=== PATIENT | female | born 1990 | race Caucasian/White ===

== ENCOUNTER 2017-09-13 08:38 | Emergency (ER) | payer OTHER, SELFPAY ==
[2017-09-13 08:39] VITALS: BP 131/76; PULSE 87; RESP 16; TEMP 36.4; O2SAT 97; BMI 28.3
--- NOTE | 2017-09-13 08:56 | US_ITS ---
STUDY: ABDOMINAL ULTRASOUND - RIGHT UPPER QUADRANT REASON FOR VISIT: Female, 27 years old. Right upper quadrant abdominal pain. TECHNIQUE: Ultrasound evaluation of the right upper quadrant was performed with real-time and static alcaraz-scale imaging. TECHNICAL QUALITY: Adequate. COMPARISON: CT abdomen: 09/15/2016 FINDINGS: Liver: The liver measures 14.8 cm in sagittal length. There is normal echogenicity of the liver. The bile ducts are within normal limits. There is hepatic color flow. The direction of portal flow is hepatopetal. There is no demonstrated mass lesion. Gallbladder: Normal distended gallbladder. The gallbladder wall measures 2.3 mm. There is a positive sonographic Dobbs's sign. There is no pericholecystic fluid. There are multiple echogenic structures within the gallbladder, consistent with multiple gallstones. Common Bile Duct (C.B.D.): The common bile duct measures 3.2 mm. Pancreas: Normal size of the head, body and tail of the pancreas. There is normal echogenicity of the pancreas. There is no demonstrated pancreatic mass or cyst. Right Kidney: Normal size of the right kidney. The right kidney measures 9.0 x 4.3 x 4.9 cm. Normal renal cortex. The right cortex measures 1.1 cm. There is no demonstrated renal mass or cyst. There is no right hydronephrosis. US/Gallbladder IMPRESSION: 1. Cholelithiasis. No demonstrated gallbladder wall thickening or pericholecystic fluid. Reportedly positive sonographic Dobbs's sign. Please correlate clinically. 2. No dilated biliary ductal system. 3. The liver, pancreas and right kidney is unremarkable. Electronically Signed: Chandra Price MD at 9:54 EDT Tel , Service support ,
--- NOTE | 2017-09-13 08:59 | ED.DCSUM_ITS ---
- ER Visit Summary Date of Service: 09/13/17 Chief Complaint: Right upper quadrant pain History of Present Illness: The patient is a 27 F presenting with right upper quadrant abdominal pain. States this began around 1 AM. She states she ate Japanese fries but denies any other fatty or greasy foods. She has nausea with no vomiting. Denies diarrhea or constipation. Denies urinary complaints. Denies fever. Denies possibility of . She has history of previous appendectomy. Denies other complaints. Physical Examination: Vitals are stable. Patient is afebrile. Alert no acute distress. HEENT exam is unremarkable. Neck is supple. Lungs are clear and equal bilaterally. Heart is regular rate and rhythm. Abdomen is soft right upper quadrant tenderness with no rebound or guarding. Extremities are unremarkable. Skin is warm and dry. Remainder of exam is unremarkable. Emergency Department Course and Treatment: Patient is given morphine, Zofran, IV fluids with improvement. CBC, chemistries unremarkable. Liver lipase are normal. HCG negative. Ultrasound gallbladder shows cholelithiasis. No demonstrated gallbladder wall thickening or pericholecystic fluid. No dilated biliary ductal system. The liver, pancreas and right kidney is unremarkable. She is resting comfortably on reevaluation. Advised to follow-up with Dr. Romeo. Advised to return to ED for worsening complaints. Disposition: Discharge home Impression: Abdominal pain, cholelithiasis This note was generated with [employer] dictation software. It may contain incorrect words, spelling, and punctuation that were not noted in review of the chart prior to signing ED Disposition - Plan for ED Patient: Chief Complaint: Abd Pain Referrals: Mac Hallman DO [Primary Care Provider] -
[2017-09-13] MEDS: 0.9% Normal Saline 1,000 ML 1000 ML IV (09:13)
[2017-09-13] MEDS: Ondansetron 4 MG/2 ML Vial IV (09:17)
[2017-09-13] MEDS: Morphine 4 MG/ML Syringe IV ×2 (09:17→10:34)
[2017-09-13 09:21] LABS: Absolute Lymphocyte Count 2.97 X10^3/ul (0.83-4.51); Absolute Neutrophil Count 4.8 X10^3/uL (2.0-7.7); Basophil# 0.03 X10^3/uL; Basophil% 0.4 % (0-1); Eosinophil# 0.21 X10^3/uL; Eosinophils% 2.5 % (0-5); Hematocrit 43.2 % (37-47); Hemoglobin 14.7 g/dl (12.0-15.0); Lymphocyte # 2.97 X10^3/ul (4.0); Lymphocyte % 34.8 % (19-41); Mean Corpuscular Hgb 29.4 pg (27.0-32.0); Mean Corpuscular Volume 86.4 fL (81-99); Mean Platelet Vol. 9.8 fl (6.2-12.0); Monocyte# 0.57 X10^3/uL; Monocyte% 6.7 % (0-10); Neutrophil # 4.75 X10^3/uL (2.7-7.7); Neutrophil % 55.5 % (47-70); Platelet Count 308 K/mm3 (150-450); RBC Distribution Width CV 12.5 % (11.6-14.6); RBC Distribution Width SD 39.9 fl (35.1-43.9); White Blood Count 8.5 K/mm3 (4.4-11.0)
[2017-09-13 09:24] LABS: POSITIVE COUNT NO; POSITIVE DIFFERENTIAL NO; POSITIVE MORPHOLOGY NO
[2017-09-13 09:36] LABS: AST(SGOT) 10 U/L (15-37); Alanine Aminotransfer ALT/SGPT 19 U/L (13-56); Albumin, Serum 3.8 g/dL (3.2-5.0); Alkaline Phosphatase 61 U/L (45-117); Anion Gap 6 (5-15); BUN 8 mg/dL (7-18); BUN/Creat Ratio 9.6 RATIO (10-20); Calcium,Total 8.8 mg/dL (8.5-10.1); Chloride 109 mmol/L (98-107); Creatinine, Serum 0.83 mg/dL (0.55-1.02); EST Glomerular Filtration Rate 88 mL/min (>60); Est Glom Filt Rate - Afr Amer 107 mL/min (>60); Estimated Creatinine Clearance 81.95 ml/min; Glucose 84 mg/dL (74-106); Lipase 173 U/L (73-393); Potassium 3.8 mmol/L (3.5-5.1); Protein, Total 7.8 g/dL (6.4-8.2); Sodium Level 141 mmol/L (136-145)
[2017-09-13 10:10] VITALS: BP 97/63; PULSE 72; RESP 16; O2SAT 100
[2017-09-13 10:11] LABS: Pregnancy, Serum, hCG Quali. NEGATIVE Negative (0-9 Nonpreg)
[2017-09-13 10:13] VITALS: BP 97/63; PULSE 72; RESP 16; O2SAT 100
--- NOTE | 2017-09-13 10:18 | DCINST.ED_ITS ---
ED Disposition - Plan for ED Patient: Chief Complaint: Abd Pain Instructions: Discharge Instructions for Gallstones Prescriptions: Hydrocodone Bitart/Apap 5-325 [[place] 5/325] 1 tablet PO Q6H PRN PRN 2 Days #8 tablet PRN Reason: Pain Ondansetron [Zofran Odt] 4 mg PO Q8H PRN PRN #10 tablet PRN Reason: Nausea Referrals: Mac Hallman DO [Primary Care Provider] - Levy Romeo MD [STAFF PHYSICIAN] -
== END 2017-09-13 11:00 | disposition home or self-care (01) ==
PROVIDERS: Emergency Provider Emergency Medicine; Family Provider Pediatrics; PCP Pediatrics
DX: K80.20 Calculus of gallbladder without cholecystitis without obstruction (principal)
CPT/HCPCS: 76705; 80048; 80076; 83690; 84703; 85025; 96361; 96374; 96375; 96376; 99283; J7030; A4216; J2405

== ENCOUNTER 2019-01-16 02:49 | Emergency (ER) | payer OTHER, SELFPAY ==
[2019-01-16 02:50] VITALS: BP 139/100; PULSE 110; RESP 20; TEMP 36.8; O2SAT 98; BMI 32.2
[2019-01-16] MEDS: DiphenhydrAMINE 50 MG/ML Syringe 25 MG IV (03:00)
[2019-01-16 03:17] VITALS: BP 124/72; PULSE 87; RESP 23; O2SAT 100
--- NOTE | 2019-01-16 03:34 | RAD_ITS ---
STUDY: X-RAY CHEST REASON FOR EXAM: Female, 28 years old. Shortness of breath TECHNIQUE: PA and lateral chest COMPARISON: None. FINDINGS: There are left upper lobe calcified granulomas. The lungs are clear and expanded. There is no demonstrated pleural abnormality. Normal size heart. Normal mediastinum and eusebia. Normal visualized pulmonary arteries. Normal visualized aortic arch and descending thoracic aorta. Normal visualized thoracic spine. Normal visualized ribs, clavicles, and shoulders. There is no demonstrated abnormality of the visualized soft tissue structures of the upper abdomen. RAD/Chest PA and Lateral IMPRESSION: Left upper lobe calcified granulomas Electronically Signed: Juancarlos Raygoza, at 5:17 EDT Tel , Service support ,
--- NOTE | 2019-01-16 03:34 | EKG12_ITS ---
Test Reason : DYSRHYTHMIA Blood Pressure : / mmHG Vent. Rate : 079 BPM Atrial Rate : 079 BPM P-R Int : 106 ms QRS Dur : 082 ms QT Int : 364 ms P-R-T Axes : 032 054 044 degrees QTc Int : 417 ms Sinus rhythm with short [place] Otherwise normal ECG Confirmed by JOSSELIN RUGGIERO, DEBORAH ([id number]), scientific editor TRINO STRANGE ([id number]) on 01/19/2019 11:14:49 AM Referred By: GERMAN Confirmed By:DEBORAH SCHWAB MD
--- NOTE | 2019-01-16 03:38 | ED.VIS.GEN ---
History of Present Illness Chief Complaint: Allergic Reaction Narrative: This patient is a 28-year-old female who presents with shortness of breath. She ate some buffalo chicken about an hour before presentation which she had never had before. While driving home she developed a [id number]-ilewirb sensation in her jaw/mandible. She then developed tightness in her throat and chest. She denies any pain. She has had some nonproductive cough. She otherwise complains of recent rhinorrhea but otherwise no recent illness. She complains of nausea without vomiting. No rash. She was concerned she may be having an anaphylactic reaction versus a panic attack. Although she has had anxiety previously never this severe. She has no known medication or drug allergies although she is allergic to bee stings. No recent travel or surgery, no leg pain or swelling, no history of DVT or pulmonary embolism. Past Medical History - Allergies and Home Meds Allergies/Adverse Reactions: Allergies bee venom protein (honey bee) Allergy (Verified 01/16/19 02:50) Angioedema Primary Care Physician: Mac Hallman DO [Primary Care Provider] - Past Medical History: - - Fibromyalgia Surgical History: appendectomy, cholecystectomy Smoking Status: Never smoker Review of Systems All systems negative except as indicated General: Denies: Fever Cardiovascular: Denies: Chest pain Respiratory: Reports: Dyspnea, Cough Gastrointestinal: Reports: Nausea. Denies: Vomiting, Diarrhea Skin: Denies: Rash Physical Exam Vital Signs/Narrative: Vital Signs Temp Pulse Resp BP Pulse Ox 01/16/19 03:17 87 23 H 124/72 H 100 01/16/19 02:50 98.3 F 110 H 20 H 139/100 H 98 General: Well nourished Head: Normocephalic Eyes: EOMI ENT: Moist mucous membranes, - - Airway patent, no angioedema Neck: Supple Cardiovascular: - - Heart is regular tachycardia without murmur gallop or rub Respiratory: - - Tachypnea but lungs are clear without rales rhonchi wheezing, no stridor Abdomen: Soft, Nontender Extremities: Nontender, No edema Skin: Normal color, No rash Neurological: Alert Psychological: - - Anxious Diagnostic/Tx/Re-eval 01/16/19 03:34 Chest PA and Lateral [RAD] Stat Laboratory Results 01/16/19 01/16/19 01/16/19 02:50 02:50 02:50 WBC 11.3 H RBC 4.96 Hgb 14.5 Hct 43.2 MCV 87.1 MCH 29.2 MCHC 33.6 RDW Std Deviation 37.4 RDW Coeff of Moe 11.9 Plt Count 361 MPV 10.0 Immature Gran % (Auto) 0.300 Neut % (Auto) 54.5 Lymph % (Auto) 36.3 Carlton % (Auto) 7.1 Eos % (Auto) 1.4 Baso % (Auto) 0.4 Absolute Neuts (auto) 6.2 Absolute Lymphs (auto) 4.11 Nucleated RBC % 0 D-Dimer Quant (PE/DVT) 0.36 Sodium 143 Potassium 3.6 Chloride 106 Carbon Dioxide 27.0 Anion Gap 10 BUN 8 Creatinine 0.85 Estim Creat Clear Calc 79.32 Est GFR (MDRD) Af Amer 103 Est GFR (MDRD) Non-Af 86 BUN/Creatinine Ratio 9.4 L Glucose 83 Calcium 9.1 Troponin I < 0.015 - Medical Decision Making Initial differential included allergic reaction or anxiety. She was treated with IV Benadryl which could potentially address both. On reevaluation her heart rate is normal in the 80s and she is maintaining a pulse ox of 100%. However she is complaining of increased shortness of breath. She is tachypneic at about 30 respirations. Her lungs remain clear. No rales no wheezing no stridor. Heart is regular on reevaluation. Her airway is patent. She still has no rash. She is on oral contraceptive and at the time of reevaluation mentioned that there is a family history of factor V Leiden. She has no chest pain but this raise concern for possible pulmonary embolism. At this point EKG chest x-ray laboratory studies including d-dimer have been added on. EKG shows sinus rhythm at a rate of 79 with no acute ischemic changes. Two-view chest x-ray on my review shows no acute process, no pneumothorax or focal infiltrate. Laboratory studies are unremarkable including normal d-dimer negative troponin. Patient was also given IV Ativan. Patient is clinically improved on reevaluation. I do believe there is a component of anxiety. At this point she does not appear to have a serious life-threatening process. She was advised to follow-up as an outpatient but understands return for new or worsening symptoms. ED Disposition - Plan for ED Patient: Disposition: Home or Assisted Living Diagnosis: Dyspnea, Chest pain Instructions: ED Dyspnea Referrals: Mac Hallman DO [Primary Care Provider] -
[2019-01-16 03:48] LABS: Absolute Lymphocyte Count 4.11 X10^3/uL (0.83-4.51); Absolute Neutrophil Count 6.2 X10^3/uL (2.0-7.7); Basophil# 0.05 X10^3/uL; Basophil% 0.4 % (0-1); Eosinophil# 0.16 X10^3/uL; Eosinophils% 1.4 % (0-5); Hematocrit 43.2 % (37-47); Hemoglobin 14.5 g/dL (12.0-15.0); Lymphocyte # 4.11 X10^3/ul (4.0); Lymphocyte % 36.3 % (19-41); Mean Corp Hgb Conc 33.6 g/dL (32-36); Mean Corpuscular Hgb 29.2 pg (27.0-32.0); Mean Corpuscular Volume 87.1 fL (81-99); Monocyte% 7.1 % (0-10); NRBC Flagged by Analyzer 0 % (0-5); Neutrophil # 6.18 X10^3/uL (2.7-7.7); Neutrophil % 54.5 % (47-70); Platelet Count 361 K/mm3 (150-450); RBC Distribution Width CV 11.9 % (11.6-14.6); RBC Distribution Width SD 37.4 fl (35.1-43.9); Red Blood Count 4.96 M/mm3 (4.2-5.4); White Blood Count 11.3 K/mm3 (4.4-11.0)
[2019-01-16 03:55] LABS: D-Dimer Quantitative (DVT/PE) 0.36 FEU/ug/m (0.27-0.49)
[2019-01-16 04:03] LABS: Anion Gap 10 (5-15); BUN 8 mg/dL (7-18); BUN/Creat Ratio 9.4 RATIO (10-20); Calcium,Total 9.1 mg/dL (8.5-10.1); Chloride 106 mmol/L (98-107); Creatinine, Serum 0.85 mg/dL (0.55-1.02); EST Glomerular Filtration Rate 86 mL/min (>60); Est Glom Filt Rate - Afr Amer 103 mL/min (>60); Estimated Creatinine Clearance 79.32 ml/min; Glucose 83 mg/dL (74-106); Potassium 3.6 mmol/L (3.5-5.1); Sodium Level 143 mmol/L (136-145)
[2019-01-16] MEDS: LORazepam 2 MG/ML Syringe 1 MG IV (04:10)
[2019-01-16 04:47] VITALS: PULSE 78; RESP 20; O2SAT 100
== END 2019-01-16 04:52 | disposition home or self-care (01) ==
PROVIDERS: Emergency Provider Emergency Medicine; Family Provider Pediatrics; PCP Pediatrics
DX: R06.00 Dyspnea, unspecified (principal); R05 Cough; R06.02 Shortness of breath; R07.9 Chest pain, unspecified; M79.7 Fibromyalgia; F41.9 Anxiety disorder, unspecified; Z90.49 Acquired absence of other specified parts of digestive tract
CPT/HCPCS: 71046; 80048; 84484; 85025; 85379; 93005; 96374; 96375; 99282; A4216

== ENCOUNTER 2021-09-14 08:20 | Day surgery (SDC) | payer OTHER, SELFPAY ==
[2021-09-14 08:54] LABS: Internal QC Validated? YES +Cl - CLEAR BKGD; Pregnancy, Urine Negative Negative
[2021-09-14 08:58] VITALS: BP 98/65; PULSE 86; RESP 16; TEMP 36.4; O2SAT 100; BMI 31.1
[2021-09-14] MEDS: Lactated Ringers 1,000 ML 15 ML IV (09:02)
--- NOTE | 2021-09-14 09:17 | PCM.HP.BLA ---
History and Physical Date of Admission: 09/14/21 Intake Vital Signs 08/31/21 09:07 Height 5 ft 2 in Weight: 176 lb BMI 32.1 BP 136/88 H Blood Pressure Location Rt brachial Position Sitting Respiration 16 Pulse 91 Pulse Source Monitor Temp 98.1 F Temp Source Temporal Pulse Oximetry (%) 98 Oxygen Delivery Method room air Intake Visit Reasons: RECTAL BLEEDING CSCOPE Chief Complaint: Rectal Bleeding Cscope Product Sales Representative Required: No Is patient in pain?: No Allergies bee venom protein (honey bee) Allergy (Verified 08/31/21 09:08) Angioedema Medications Control 1 tab PO DAILY 09/15/16 [History Confirmed 01/16/19] hydroxyzine HCl 25 mg tablet 25 mg PO BID PRN 08/31/21 [History Confirmed 08/31/21] ondansetron HCl 4 mg tablet 4 mg PO Q6H 08/31/21 [History Confirmed 08/31/21] PFSH Surgical History (Updated 08/31/21 @ 09:03 by Huma Friday) History of appendectomy History of cholecystectomy Hx of LASIK Family History (Updated 08/31/21 @ 09:05 by Huma Friday) Mother Bleeding disorder Factor V Grandmother Breast cancer Hypertension CVA (cerebral vascular accident) Grandfather Colon cancer Both grandfathers, one from Diabetes Heart disease Cancer skin Social History (Updated 08/31/21 @ 09:06 by Huma Friday) Smoking Status: Never smoker alcohol intake: current details: socially substance use type: does not use HPI HPI HPI: EDENILSON AGUILERA, is a 31 F who presents to the office today for GI bleeding. The patient reports with for the past year she has had GI bleeding. She reports that it alternates between bright red and dark red. Patient does note lower abdominal pain and cramping. She says it does not always happen and occasionally happens. She has had some inadvertent weight loss. She does have family history of colon cancer in her grandfather and uncle. ROS General General: Yes weight change and fatigue; No appetite, colon cancer, breast cancer or weakness Additional Details: Lost 25-30 lbs over 1 month HEENT HEENT: Yes eye surgery; No difficulty swallowing, eye injury, swollen glands or hoarseness Endo Endocrine: No thyroid disease, diabetes mellitus, thyroid cancer, Hair loss, heat intolerance or cold intolerance Skin Skin: No rash or changing moles Musc Musculoskeletal: No back problems, arthritis, rheumatoid arthritis, gout or joint pain Cardio Cardiovascular: No murmur, pacemaker, heart disease, atrial fibrillation, high blood pressure, heart attack, heart stent, palpitations, shortness of breat with exertion or chest pain Psych Psychiatric: Yes anxiety; No depression or hearing voices Resp Respiratory: No shortness of breath, No sleep apnea, No cough, No COPD, No asthma, No emphysema and No wheezing Gastro Gastrointestinal: Yes abdominal pain, Yes nausea or vomiting, Yes diarrhea, Yes constipation, Yes blood in stool, No acid reflux, Yes hemorrhoids, No ulcers, No gallbladder problem and Yes black,tarry stools Michael Hematologic: No blood thinners, No blood disorders, No bleeding, No anemia and No blood clots Additional Details: Being tested for Factor V Neuro Neurologic: No system reviewed and no additional complaints, except as documented, No as per HPI, No abnormal gait, No abnormal hearing, No abnormal movements, No abnormal speech, No behavioral changes, No burning sensations, No confusion, No convulsions, No disequilibrium, No dizziness, No localized weakness, No frequent falls, No headache(s), No lack of coordination, No loss of vision, No memory loss, No numbness, No other visual disturbances, No radicular pain, No restless legs, No sensory deficit, No syncope, No tingling, No tremor(s), No weakness and No other Exam Const General: cooperative Orientation: alert and oriented x3 HENMT Head: normal to inspection Neck Neck: normal visual inspection and full ROM Chest Chest palpation & inspection: normal inspection of the chest Resp Effort & Inspection: normal respiratory effort Auscultation: clear to auscultation bilaterally Cardio Rate: regular rate Rhythm: regular rhythm GI Inspection: non-distended Palpation: soft and nontender Skin General: no rashes or lesions noted Neuro General: patient alert and patient oriented x3 Extrem General: full ROM Psych Appearance: grossly normal Mental Status: mental status grossly normal Assessment and Plan Assessment and Plan (1) Blood in stool: Status: Acute Orders: Orders: Colonoscopy Today Plan - Dr. Obdulio Lennon MD: The patient has had GI bleeding which has been bright and dark. I recommend upper and lower scope to elucidate the cause. I explained endoscopy in detail to the patient. I explained the risks including but not limited to stroke or heart attack with anesthesia, perforation of the GI tract, bleeding, infection. I explained that any of these could necessitate further emergency surgery. The patient understands and all questions were answered sufficiently. The patient wishes to proceed with procedure. Obdulio Lennon MD Pager: [facility] [address] [place] [address], [address] [place] [address] Office: I have re-examined the patient. There are no clinical changes since date of exam.
--- NOTE | 2021-09-14 09:30 | COLBX_PTH ---
PATIENT: EDENILSON AGUILERA WATERLOO LOC: EN U#:[id number] AGE/SX: ROOM: RE09/14/[address]: Dr. Obdulio Lennon MD : 1990 BED: DIS: 09/14/2021 SPEC #: [id number] RECD: 09/14/21 10:29 STATUS: GUTIERREZ REGaudencio #: [id number] MIROSLAVA: 09/14/21 09:[address]: Obdulio Lennon DEPT: SURGICAL PATHOLOGY RECD BY: eSema Bustillos ENTERED: 09/14/21 12:00 SP TYPE: COLON BX OTHR DR: DEEPAK Daugherty Tissues: Sigmoid colon biopsy Procedures: Surgery Specimen Level IV HEADER OPERATION: Colonoscopy, EGD ([facility]) PRE-OP DIAGNOSIS: Blood in Stool TISSUE SUBMITTED: Sigmoid polyp at 15 cm MICROSCOPIC DIAGNOSIS Sigmoid colon polyp at 15cm, biopsy: Tubular adenoma. AM/am 09/17/21 MICROSCOPIC DESCRIPTION Slides are reviewed. GROSS DESCRIPTION Received is one container labeled with the patient name and designated sigmoid polyp at 15 cm. The specimen consists of one irregular fragment of kaufman-pink polyp that measures 0.6 x 0.5 x 0.5 cm. Apparent base is inked. The specimen is bisected and totally submitted in one cassette. MCKINLEY 09/16/21. TC:5 CPT: 69971
[2021-09-14 10:10] VITALS: BP 105/69; BP 98/65; PULSE 77; RESP 13; TEMP 36.6; O2SAT 99
[2021-09-14 10:15] VITALS: BP 90/47; BP 98/65; PULSE 79; RESP 16; O2SAT 100
[2021-09-14 10:20] VITALS: BP 95/62; BP 98/65; PULSE 79; RESP 15; O2SAT 99
[2021-09-14 10:25] VITALS: BP 98/65; BP 99/68; PULSE 60; RESP 16; TEMP 36.7; O2SAT 100
[2021-09-14 10:51] VITALS: BP 98/65
--- NOTE | 2021-09-14 14:09 | OP.EGD_ITS ---
Patient Name: Jeannine Elizabeth Procedure Date: 09/14/2021 9:28 AM Date of : 1990 Age: 31 Procedure: Upper GI endoscopy Indications: Hematochezia Providers: Obdulio Lennon MD Medicines: Propofol per Anesthesia Patient Profile: This is a 31 year old female. Refer to note in patient chart for documentation of history and physical. Complications: No immediate complications. Procedure: Pre-Anesthesia Assessment: - Prior to the procedure, a History and Physical was performed, and patient medications and allergies were reviewed. The patient's tolerance of previous anesthesia was also reviewed. The risks and benefits of the procedure and the sedation options and risks were discussed with the patient. All questions were answered, and informed consent was obtained. Prior Anticoagulants: The patient has taken no previous anticoagulant or antiplatelet agents. After reviewing the risks and benefits, the patient was deemed in satisfactory condition to undergo the procedure. After obtaining informed consent, the endoscope was passed under direct vision. Throughout the procedure, the patient's blood pressure, pulse, and oxygen saturations were monitored continuously. The gastroscope was introduced through the mouth, and advanced to the second part of duodenum. The upper GI endoscopy was accomplished without difficulty. The patient tolerated the procedure well. Scope In: 9:42:39 AM Scope Out: 9:45:09 AM Total Procedure Duration Time 0 hours 2 minutes 30 seconds Findings: The esophagus was normal. The stomach was normal. The examined duodenum was normal. Impression: - Normal esophagus. - Normal stomach. - Normal examined duodenum. - No specimens collected. Recommendation: - Discharge patient to home. - Resume previous diet. - Continue present medications. Procedure Code(s): --- Professional --- 28532, Esophagogastroduodenoscopy, flexible, transoral; diagnostic, including collection of specimen(s) by brushing or washing, when performed (separate procedure) Diagnosis Code(s): --- Professional --- K92.1, Melena (includes Hematochezia) CPT copyright 2017 [employer]. All rights reserved. The codes documented in this report are preliminary and upon retail pharmacy manager review may be revised to meet current compliance requirements. Obdulio Lennon MD 09/14/2021 2:09:17 PM This report has been signed electronically. Number of Addenda: 0 Note Initiated On: 09/14/2021 9:28 AM
--- NOTE | 2021-09-14 14:10 | OP.CCLET_ITS ---
09/14/2021 Mac Hallman [address] [facility] [address] [place] [address] Re : Upper GI endoscopy procedure for Jeannine [facility] Dear Dr. Hallman This procedure was performed on Tuesday, September 14, 2021. My impressions and recommendations are as follows: Impressions : - Normal esophagus. - Normal stomach. - Normal examined duodenum. - No specimens collected. Recommendations : - Discharge patient to home. - Resume previous diet. - Continue present medications. My findings are described in the full procedure note, which is enclosed. If I can be of further assistance, please feel free to contact me at Doctor phone number(s): , Work: . Sincerely, Obdulio Lennon MD 09/14/2021 2:09:17 PM This report has been signed electronically.
--- NOTE | 2021-09-14 14:13 | OP.COLON_ITS ---
Patient Name: Jeannine Elizabeth Procedure Date: 09/14/2021 9:47 AM Date of : 1990 Age: 31 Procedure: Colonoscopy Indications: Colon cancer screening in patient at increased risk: Family history of colorectal cancer in multiple 2nd degree relatives Providers: Obdulio Lennon MD Medicines: Monitored Anesthesia Care Patient Profile: This is a 31 year old female. Refer to note in patient chart for documentation of history and physical. Last Colonoscopy: none. The patient's first colonoscopy is today. Complications: No immediate complications. Procedure: Pre-Anesthesia Assessment: - Prior to the procedure, a History and Physical was performed, and patient medications and allergies were reviewed. The patient's tolerance of previous anesthesia was also reviewed. The risks and benefits of the procedure and the sedation options and risks were discussed with the patient. All questions were answered, and informed consent was obtained. Prior Anticoagulants: The patient has taken no previous anticoagulant or antiplatelet agents. After reviewing the risks and benefits, the patient was deemed in satisfactory condition to undergo the procedure. After I obtained informed consent, the scope was passed under direct vision. Throughout the procedure, the patient's blood pressure, pulse, and oxygen saturations were monitored continuously. The pediatric colonoscope was introduced through the anus and advanced to the cecum, identified by appendiceal orifice and ileocecal valve. The colonoscopy was performed without difficulty. The patient tolerated the procedure well. The quality of the bowel preparation was good. Scope In: Scope Withdrawal Time 0 hours 7 minutes 14 seconds Scope Out: 10:02:46 AM Findings: A medium polyp was found in the sigmoid colon. The polyp was pedunculated. The polyp was removed with a hot snare. Resection and retrieval were complete. The entire examined colon appeared normal on direct and retroflexion views. The exam was otherwise without abnormality on direct and retroflexion views. Impression: - One medium polyp in the sigmoid colon, removed with a hot snare. Resected and retrieved. - The entire examined colon is normal on direct and retroflexion views. - The examination was otherwise normal on direct and retroflexion views. Recommendation: - Discharge patient to home. - Resume previous diet. - Continue present medications. - Await pathology results. - Repeat colonoscopy in 5 years for surveillance. Procedure Code(s): --- Professional --- 36926, Colonoscopy, flexible; with removal of tumor(s), polyp(s), or other lesion(s) by snare technique Diagnosis Code(s): --- Professional --- Z80.0, Family history of malignant neoplasm of digestive organs D12.5, Benign neoplasm of sigmoid colon CPT copyright 2017 [employer]. All rights reserved. The codes documented in this report are preliminary and upon capacitor pack press operator review may be revised to meet current compliance requirements. Obdulio Lennon MD 09/14/2021 2:12:58 PM This report has been signed electronically. Number of Addenda: 0 Note Initiated On: 09/14/2021 9:47 AM
--- NOTE | 2021-09-14 14:14 | OP.CCLET_ITS ---
09/14/2021 Mac Hallman [address] [facility] [address] [place] [address] Re : Colonoscopy procedure for Jeannine [facility] Dear Dr. Hallman This procedure was performed on Tuesday, September 14, 2021. My impressions and recommendations are as follows: Impressions : - One medium polyp in the sigmoid colon, removed with a hot snare. Resected and retrieved. - The entire examined colon is normal on direct and retroflexion views. - The examination was otherwise normal on direct and retroflexion views. Recommendations : - Discharge patient to home. - Resume previous diet. - Continue present medications. - Await pathology results. - Repeat colonoscopy in 5 years for surveillance. My findings are described in the full procedure note, which is enclosed. If I can be of further assistance, please feel free to contact me at Doctor phone number(s): , Work: . Sincerely, Obdulio Lennon MD 09/14/2021 2:12:58 PM This report has been signed electronically.
== END 2021-09-14 11:06 | disposition home or self-care (01) ==
LOC: EN 08:24 → AC 08:25
PROVIDERS: Anesthesiology; PCP Nurse Practitioner Family; Referring Provider Nurse Practitioner Family; Visit Provider Surgery
PROC: 0DJD8ZZ Inspection of Lower Intestinal Tract, Via Natural or Artificial Opening Endoscopic (ICD-10-PCS; CPT 45378; principal; 2021-09-14 09:25)
DX: D12.5 Benign neoplasm of sigmoid colon (principal); Z80.0 Family history of malignant neoplasm of digestive organs; K92.1 Melena; Z83.2 Family history of diseases of the blood and blood-forming organs and certain disorders involving the immune mechanism; Z87.19 Personal history of other diseases of the digestive system; M79.7 Fibromyalgia
CPT/HCPCS: 45385; 43235; 81025; 87426; 88305; J7120; J2405

== ENCOUNTER → 2023-05-30 | Outpatient (CLI) | payer OTHER, SELFPAY ==
--- NOTE | 2023-05-30 14:25 | US_ITS ---
STUDY: ULTRASOUND TRANSVAGINAL CLINICAL: Female, 33 years old. Painful bleeding, infertility workup TECHNIQUE: Transvaginal COMPARISON: None. FINDINGS: Normal uterine size measuring 7.7 cm in maximal craniocaudal dimension. There are no myometrial masses. Uterus is septated Normal endometrial thickness measuring 10.2 mm. There are no endometrial masses, and there is no fluid in the endometrial cavity. Normal uterine cervix. Normal right ovary, measuring 3.8 x 3.1 x 2.5 cm. There are multiple follicles without a dominant cyst. Normal left ovary, measuring 2.9 x 2.5 x 2.1 cm. There are multiple follicles without a dominant cyst. Bladder is incompletely distended US/Transvaginal Non- IMPRESSION: Septated uterus No suspicious adnexal mass or free fluid No uterine fibroid Electronically Signed: Heladio Rivas MD at 20:15 EST ,
== END | disposition home or self-care (01) ==
PROVIDERS: PCP Nurse Practitioner Adult Health; Referring Provider Advanced Practice Midwife; Visit Provider Advanced Practice Midwife
DX: Z31.69 Encounter for other general counseling and advice on procreation (principal); N94.6 Dysmenorrhea, unspecified
CPT/HCPCS: 76830

== ENCOUNTER → 2023-06-09 | Outpatient (CLI) | payer OTHER, SELFPAY ==
--- OUTSIDE RECORDS SUMMARY | 2023-06-09 17:23 | XMS RPT_ITS | CCD ---
Author Name Unknown Address [address] [place] [address] Organization [facility] Care Team Providers Care Access Clinician Name Role Phone JESSICA GUNN Unavailable Unavailable JESSICA GUNN Unavailable Unavailable Tiara Ruffin CNP Primary Care Provider Unavail able TIARA STEEN Primary Care Physician ( [phone] Allergies Allergy Classification Reported Allergen(s) Allergy Type Date of Onset Reaction(s) Facility (1 source) [facility]; Translations: [[facility]] Propensity to adverse reactions (disorder) 3 [facility] [place] [facility] Medications Current Medications Medication Drug Class(es) Dates Sig (Normalized) Sig (Original) hydrOXYzine pamoate 25 mg oral capsule (1 source) Antihistamine Start: 08-16-2021 End: 10-15-2021 Vistaril 25 mg oral capsule Dose : 25 mg = 1 cap(s), Oral, QID, PRN as needed for anxiety, X 30 day(s), # 120 cap(s), 1 Refill(s), 10/15/21 15:39:00 EDT, Pharmacy: [address], 156.7, cm, 08/16/21 15:16:00 EDT, Height Start Date: 08/16/21 Stop Date: 10/15/21 Status: Ordered lisdexamfetamine dimesylate 10 mg oral capsule (1 source) Central Nervous System Stimulant Start: 08-16-2021 Vyvanse 10 mg oral capsule Dose : 10 mg = 1 cap(s), Oral, qAM, # 30 cap(s), 0 Refill(s), Pharmacy: [facility], ADD (attention deficit disorder), 156.7, cm, 08/16/21 15:16:00 EDT, Height, 80.3 Start Date: 08/16/21 Status: Ordered LORazepam 0.5 mg oral tablet (1 source) Benzodiazepine Start: 05-10-2020 LORazepam 0.5 mg oral tablet 0 Refill(s), 85.1 Start Date: 05/10/20 Status: Ordered ondansetron 4 mg oral tablet (2 sources) Serotonin-3 Receptor Antagonist Start: 08-16-2021 End: 08-16-2022 Zofran 4 mg oral tablet Dose : 4 mg = 1 tab(s), Oral, q6h, PRN Nausea/Vomiting , # 20 tab(s), 1 Refill(s), 08/16/22 15:40:00 EDT, Pharmacy: [address], 156.7, cm, 08/16/21 15:16:00 EDT, Height Start Date: 08/16/21 Stop Date: 08/16/22 Status: Ordered Completed/Discontinued Medications Medication Drug Class(es) Dates Sig (Normalized) Sig (Original) clonazePAM 0.5 mg oral tablet (1 source) Benzodiazepine Start: 05-10-2020 End: 06-09-2020 clonazePAM 0.5 mg oral tablet Dose : 0.5 mg = 1 tab(s), Oral, qHS, # 30 tab(s), 0 Refill(s), Pharmacy: [facility], Anxiety, 157, cm, 05/10/20 14:18:00 EST, Height, 81.8, kg, 05/10/20 14:18:00 EST, Dosing Weight Start Date: 05/10/20 Stop Date: 06/09/20 Status: Ordered {21 (Desogestrel 0.15 MG / Ethinyl Estradiol 0.03 MG Oral Tablet) / 7 (Inert Ingredients 1 MG Oral Tablet) } Pack [Apri 28 Day] (1 source) Progestin, Estrogen Start: 06-13-2020 End: 06-08-2021 take 1 tablet by mouth once daily Apri 0.15 mg-0.03 mg oral tablet Dose = 1 tab(s), Oral, Daily, # 90 tab(s), 3 Refill(s), Pharmacy: [facility], 157, cm, 05/10/20 14:18:00 EST, Height, kg, 05/10/20 14:18:00 EST, Dosing Weight Start Date: 06/13/20 Stop Date: 06/08/21 Status: Ordered ibuprofen 800 mg oral tablet (2 sources) Nonsteroidal Anti-inflammatory Drug Start: 11-03-2020 End: 11-03-2020 ibuprofen (MOTRIN) tablet 800 mg Problems Problem Classification Problem Date Documented Date Episodic/Chronic Anxiety disorders (1 source) Anxiety 05-04-2020 Chronic Biliary tract disease (2 sources) Calculus of gallbladder without cholecystitis without obstruction; Translations: [Other specified diseases of gallbladder] Onset: 09-17-2017 Episodic Other connective tissue disease (1 source) Fibromyalgia 03-11-2019 Episodic Residual codes; unclassified (1 source) Family history of blood coagulation disorder 03-12-2019 Episodic Residual codes; unclassified (1 source) Insomnia 05-17-2020 Episodic Sprains and strains (1 source) Sprain of left ankle; Translations: [Sprain of unspecified ligament of left ankle, initial encounter] Episodic Superficial injury; contusion (1 source) Contusion of left knee; Translations: [Contusion of left knee, initial encounter] Episodic Results Test Name Value Interpretation Reference Range Facil ity Vital Signs Date Time Vital Sign Value Performing Clinician Mohan alex 11-03-2020 22:13-0400 Body height 157.5 cm [employer] Work Phone: [employer] [facility] 11-03-2020 22:13-0400 Body mass index (BMI) [Ratio] 32.01 kg/m2 [email or web address] DO Work Phone: [employer] [facility] 11-03-2020 22:13-0400 Body temperature 99 [degF] [employer] DO Work Phone: [employer] [facility] 11-03-2020 22:13-0400 Body weight 79.38 kg [email or web address] DO Work Phone: [employer] [facility] 11-03-2020 22:13-0400 Diastolic blood pressure 83 mm[Hg] [employer] Work Phone: [employer] [facility] 11-03-2020 22:13-0400 Heart rate 93 /min John Grimaldo DO Work Phone: [facility] 11-03-2020 22:13-0400 Respiratory rate 20 /min John Grimaldo DO Work Phone: [facility] 11-03-2020 22:13-0400 SaO2% (BldA) [Mass fraction] 98 % John Grimaldo DO Work Phone: [facility] 11-03-2020 22:13-0400 Systolic blood pressure 128 mm[Hg] John Grimaldo DO Work Phone: [facility] Encounters Encounter Date Encounter Type Care Provider Facility Start: 09-07-2021 End: 09-07-2021 Patient encounter procedure TIARA RUFFIN DEVICE REPAIR TECHNICIAN-IT APPLICATION DEVELOPMENT MANAGER [facility] Start: 11-03-2020 End: 11-03-2020 Emergency department patient visit John Grimaldo DO Work Phone: [facility] Start: 09-19-2017 End: 09-19-2017 Ambulatory [facility] Plan of Treatment Date Care Activity Detail Author Start: 12-17-2020 Influenza vaccination INFLUENZA VACC INE [facility] Start: 2017 COTEST / HPV [facility] Start: 2013 Microscopic observat ion [Identifier] in Cervix by Cyto stain PAP SMEAR [facility] Start: 2013 Screening for malign ant neoplasm of cervix CERVICAL CANCER SCREENING [facility] Start: 2010 HEPATITIS C SCREENING HEPATITIS C SC REENING [facility] Start: 2007 HIV SCREENING HIV SCREENING [facility] Start: 2003 TETANUS VACCINE 11+ TETANUS VACCINE 11+ [facility] Start: 1995 ANNUAL PREVENTIVE PH YSICAL (INCLUDES MAAP) ANNUAL PREVENTIVE PHYSICAL (INCLUDES MAAP) [facility] End: 11-03-2020 Radex ankle complete minimum 3 views XR ANKLE LEFT MINIMUM 3 VIEWS Imaging STAT Now for 1 Occurrences starting 11/03/2020 until 11/03/2020 [facility] Immunizations Immunization Date Immunization Notes Care Provider Tiffanie saleem 03-20-2018 influenza virus vacc ine, unspecified formulation John Grimaldo DO Work Phone: [facility] Payers Date Payer Category Payer Policy ID Worker's Compensation [employer] WORK[employer]ENSATION [employer]ATION [id number] Effective for all dates [id number] Social History Date Type Detail Facility Start: 03-11-2019 End: 11-03-2020 Tobacco smoking status NHIS Never smoker [facility] Start: 11-03-2020 Tobacco use and exposure [facility] Start: 11-03-2020 Alcohol intake Ex-drinker (finding) [facility] Start: 1992 Sex Assigned At Not on file [facility] Exposure to SARS-CoV -2 (event) Not sure [facility] Sex Assigned At Sex [facility] Clinical Note 11-04-2020 Note Date & Type Note Facility 11-04-2020 Note PROCEDURE: XR LEG TI YOLIE / FIBULA LEFT 2 VIEWS CLINICAL INFORMATION: ANKLE PAIN, KNEE PAIN, . COMPARISON: No prior study. TECHNIQUE: AP and lateral views of the left lower leg. 4 total views FINDINGS: There is no fracture. The tibia and fibula are intact. The soft tissues are normal. No suspicious osseous lesions are present. The knee joint is within appropriate limits. The ankle joint appears normal. IMPRESSION: 1. Normal 4 views of the left tibia and fibula. Dictated by: ENMANUEL BLAND DO Workstation ID:[id number] ANKLE PAIN; KNEE PAIN [facility] Clinical Note 11-04-2020 Note Date & Type Note Facility 11-04-2020 Note PROCEDURE: XR KNEE L EFT 3 VIEWS CLINICAL INFORMATION: ANKLE PAIN, KNEE PAIN, . COMPARISON: No prior study. TECHNIQUE: 3 views of the left knee include an AP view, a lateral view and bilateral oblique views. FINDINGS: There is no fracture or dislocation. There is no joint effusion. The joint spaces are normal. No suspicious osseous lesions are present. The soft tissues are normal. IMPRESSION: 1. Normal left knee. Dictated by: ENMANUEL BLAND DO Workstation ID:[id number] ANKLE PAIN; KNEE PAIN, fall [facility] Clinical Note 11-04-2020 Note Date & Type Note Facility 11-04-2020 Note PROCEDURE: XR ANKLE LEFT MINIMUM 3 VIEWS CLINICAL INFORMATION: ANKLE PAIN, KNEE PAIN, . COMPARISON: No prior study. TECHNIQUE: 3 views of the left ankle. FINDINGS: There is no fracture or dislocation. The ankle mortise is congruent with the talar dome. No suspicious osseous lesions are present. The calcaneus is normal. The base of the fifth metatarsal is normal. There is mild soft tissue swelling. IMPRESSION: 1. Mild soft tissue swelling around the medial and lateral aspects of the ankle joint. 2. No acute joint or osseous abnormality. Dictated by: ENMANUEL BLAND DO Workstation ID:[id number] ANKLE PAIN; KNEE PAIN, [facility] Emergency department Note 11-03-2020 Naga Zendejas RN - 11/03/2020 11:08 PM John Rosario DO - 11/03/2020 10:36 PM Haven Sharma RN - 11/03/2020 10:12 PM EDT Note Date & Type Note Facility 11-03-2020 Emergency departm ent Note Patient discharged to home via wheelchair. No respiratory distress. Provided with discharge teaching and verbalizes understanding. Encouraged to follow-up as directed, patient encouraged to return for worsening or new symptoms or other concerns. Air cast applied correctly by patient. I have given crutches to the patient, adjusted them and provided complete instructions on safe use. Patient seen with advanced practitioner. 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 She reports that she caught herself and did not fall or hit her head. She reports after he sat for a while to began to notice soreness in her left knee as well. She primarily complains of pain in the left ankle and left lower leg. There is no visible deformity or swelling but she exquisitely tender along the lateral aspect of the ankle just below the malleolus. She also reports left anterior lateral knee pain but there is no gross deformity. Ligamentous exam is stable with normal anterior drawer test. She has pain with range of motion but varus and valgus stressing of the collateral ligaments is unremarkable. Patient also reports pain with palpation of the lower leg but there is no deformity. She says she is been unable to weight-bear since this occurred. She reports pain rating into the foot but palpating bones of the foot did not reproduce any pain. She was medicated with Motrin for pain. Ice packs provided. X-rays of the patient's left knee, left tib-fib and left ankle were obtained. X-ray-left knee 2 view - AP and Lateral Findings: No acute fracture, dislocation or subluxation seen as read by me Interpreted by Emergency Department physician X-ray left tib-fib 2 view - AP and Lateral Findings: No acute fracture, dislocation or subluxation seen as read by me Interpreted by Emergency Department physician Xray -left ankle 3 view: AP. Lateral and Oblique Findings: No evidence of fracture, dislocation or subluxation as read by me Interpreted by Emergency Department Physician Patient be discharged home on NSAIDs. Will be placed in [employer] and provided with crutches for help with ambulation. To be referred to employee health and will give a note to be off work for the next 48 hours with return precaution discussed if any worsening symptoms. Impression: Fall from slipping Left ankle sprain Left knee strain Pt arrives ambulatory to triage with c/o left ankle, knee and toe pain following a fall upstairs from stepping in a puddle. Pt denies striking head. documented in this encounter [facility] Discharge instructions 11-03-2020 InstructionsAttachments Note Date & Type Note Facility 11-03-2020 Hospital Discharg e instructions Melody Chavez PA-C - 11/03/2020 Rest, elevate the affected extremity. Use ice 3 times per day for the next 24 hours. Limited weight-bearing until symptoms resolve. Follow-up with your primary physician if symptoms persist. Return if symptoms worsen. The following attachments cannot be sent through Care Everywhere.Ankle Sprain (Syriac)Knee Pain or Injury (Syriac)documented in this encounter [facility] Evaluation + Plan note Note Date & Type Note Facility Evaluation + Plan note Future Appointments Appointment Date:09/13/2021 03:00:00 PM Scheduled Provider:TIARA RUFFIN Location:[facility] Appointment Type:PC OV Follow Up Diagnostic Tests PendingProtein S Activity Free Ag 09/07/21Protein C Activity 09/07/21Factor V Assay 09/07/21 [facility] Evaluation note Note Date & Type Note Facility documented in this encounter [facility] course Narrative Note Date & Type Note Facility Hospital course Narrative No data available for this section [facility] Hospital Discharge instructions Note Date & Type Note Facility Hospital Discharge instructions No data available for this section [facility] Progress note Note Date & Type Note Facility Progress note No data available for this section [facility] Summary Purpose Family History No Family History Records FoundNo Family History Records FoundNo Family History Records FoundNo Family History Records FoundNo Family History Records FoundNo Family History Records Found Advance Directives No Advanced Directives Records FoundNo Advanced Directives Records FoundNo Advanced Directives Records FoundNo Advanced Directives Records FoundNo Advanced Directives Records FoundNo Advanced Directives Records Found Additional Source Comments INFORMATION SOURCE (unrecogn ized section and content) DATE CREATED AUTHOR AUTHOR'S ORGANIZ ATION 11/21/2018 [facility] DATE CREATED AUTHOR AUTHOR'S ORGANIZ ATION 11/05/2020 [facility] DATE CREATED AUTHOR AUTHOR'S ORGANIZ ATION 06/25/2021 [facility] DATE CREATED AUTHOR AUTHOR'S ORGANIZ ATION 09/13/2021 [facility] ([place]) DATE CREATED AUTHOR AUTHOR'S ORGANIZ ATION 06/22/2022 [facility] Reason for Visit (unrecogniz ed section and content) Scheduled Active and Recently Administ ered Medications (unrecognized section and content) Care Team (unrecognized sect ion and content) Personnel Name: TIARA RUFFIN LELAND-IT APPLICATION DEVELOPMENT MANAGER Address: [address] [place] [id number] [place] FOR RECORDS PERTAINING TO PATIENTS WHO ARE OR HAVE BEEN ENROLLED IN A CHEMICAL DEPENDENCY/SUBSTANCEABUSE PROGRAM, SOME INFORMATION MAY BE OMITTED. This clinical summary was aggregated from multiple sources. Caution should be exercised in using it in the provision of clinical care. This summary normalizes information from multiple sources, and as a consequence, information in this document may materially change the coding, format and clinical context of patient data. In addition, data may be omitted in some cases. CLINICAL DECISIONS SHOULD BE BASED ON THE PRIMARY CLINICAL RECORDS. [employer] provides no warranty or guarantee of the accuracy or completeness of information in this document.
[2023-06-09 17:51] LABS: Hemoglobin A1c 4.8 % (3.8-5.6)
[2023-06-09 17:55] LABS: Estradiol 40.6 pg/mL; Follicle Stimulating Hormone 6.8 mIU/mL; Thyroid Stim Hormone (TSH) 2.16 uIU/mL (0.358-3.74)
== END | disposition home or self-care (01) ==
LOC: LAB 17:05
PROVIDERS: PCP Nurse Practitioner Adult Health; Visit Provider Advanced Practice Midwife
DX: Z31.69 Encounter for other general counseling and advice on procreation (principal); N94.6 Dysmenorrhea, unspecified
CPT/HCPCS: 36415; 82670; 83001; 83036; 84443

== ENCOUNTER → 2023-06-13 | Outpatient (CLI) | payer OTHER, SELFPAY ==
--- NOTE | 2023-06-13 12:00 | RAD_ITS ---
INDICATION: hysterosalpingogram EXAMINATION/TECHNIQUE: Routine hysterosalpingography was performed. Total Fluoroscopic Time: 1 minute and 22 seconds AND number of Fluoroscopic Images: 3 COMPARISON: No relevant prior comparison study available FINDINGS: The uterine cavity contour is unremarkable. There are no filling defects or abnormalities. Both fallopian tubes are patent with free peritoneal spillage bilaterally. RAD/Salpingogram IMPRESSION: Negative hysterosalpingogram. Electronically Signed: Maikel Betancur MD at 13:37 EST ,
--- NOTE | 2023-06-16 14:03 | OP.PCM_ITS ---
Operative Report Date of Procedure: 06/13/23 Preop diagnosis: Infertility Postop diagnosis: Same plus bilateral tubal patency Procedure: Hysterosalpingogram Surgeon: Ce Arevalo Implantable devices: None Complications: None Findings: Bilateral tubal patency and normal uterine cavity Operative details: Patient was taken to the x-ray room and was placed on the x- ray table and was in the dorsal lithotomy position. Speculum was placed in the vagina and the cervix prepped with Betadine and the HSG catheter was easily introduced into the uterus and speculum removed. Radiologist was brought in and while pushing radiopaque dye into the uterus via the HSG catheter the radiologist took multiple images and views and confirmed bilateral tubal patency seen, slow filling of right with minimal spill but it was noted to be present. No gross uterine filling defects or abnormalities were seen. All instruments removed from the vagina and the uterus without complication. Patient tolerated the procedure well. Multi Select Codes Urinary/Genital Urinary/Genital CPT Codes: 23301 HSG/SIS
== END | disposition home or self-care (01) ==
LOC: RAD 11:54
PROVIDERS: PCP Nurse Practitioner Adult Health; Referring Provider Obstetrics & Gynecology; Visit Provider Obstetrics & Gynecology
DX: N97.9 Female infertility, unspecified (principal)
CPT/HCPCS: 58340; 74740; Q9967

== ENCOUNTER → 2023-07-02 | Outpatient (CLI) | payer OTHER, SELFPAY ==
[2023-07-02 16:56] LABS: Progesterone Level 6.81 ng/mL (See Comment)
--- OUTSIDE RECORDS SUMMARY | 2023-07-02 19:11 | XMS RPT_ITS | CCD ---
Author Name Unknown Address [address] [place] [address] Organization [facility] Care Team Providers Care Support Manager Name Role Phone JESSICA GUNN Unavailable Unavailable JESSICA GUNN Unavailable Unavailable Tiara Ruffin CNP Primary Care Provider Unavail able TIARA STEEN Primary Care Physician ( [phone] Allergies Allergy Classification Reported Allergen(s) Allergy Type Date of Onset Reaction(s) Facility (1 source) [facility]; Translations: [[facility]] Propensity to adverse reactions (disorder) 3 AOF [facility] Other [facility] Medications Current Medications Medication Drug Class(es) Dates Sig (Normalized) Sig (Original) hydrOXYzine pamoate 25 mg oral capsule (1 source) Antihistamine Start: 08-16-2021 End: 10-15-2021 Vistaril 25 mg oral capsule Dose : 25 mg = 1 cap(s), Oral, QID, PRN as needed for anxiety, X 30 day(s), # 120 cap(s), 1 Refill(s), 10/15/21 15:39:00 EDT, Pharmacy: [facility] [address], 156.7, cm, 08/16/21 15:16:00 EDT, Height [...] Date Time Vital Sign Value Performing Clinician Moahn alex 11-03-2020 22:13-0400 Body height 157.5 cm [employer] Work Phone: [employer] 11-03-2020 22:13-0400 Body mass index (BMI) [Ratio] 32.01 kg/m2 [employer] DO Work Phone: [employer] 11-03-2020 22:13-0400 Body temperature 99 [degF] [employer] DO Work Phone: [employer] 11-03-2020 22:13-0400 Body weight 79.38 kg [employer] DO Work Phone: [employer] 11-03-2020 22:13-0400 Diastolic blood pressure 83 mm[Hg] [employer] Work Phone: [employer] 11-03-2020 22:13-0400 Heart rate 93 /min John Grimaldo DO Work Phone: [facility] 11-03-2020 22:13-0400 Respiratory rate 20 /min John Grimaldo DO [facility] Phone: [facility] 11-03-2020 22:13-0400 SaO2% (BldA) [Mass fraction] 98 % John Grimaldo DO Work Phone: [facility] 11-03-2020 22:13-0400 Systolic blood pressure 128 mm[Hg] John Grimaldo DO Work Phone: [facility] Encounters Encounter Date Encounter Type Care Provider Facility Start: 09-07-2021 End: 09-07-2021 Patient encounter procedure TIARA URFFIN [employer] [facility] Start: 11-03-2020 End: 11-03-2020 Emergency department patient visit John Grimaldo DO Work Phone: [facility] Start: 09-19-2017 End: 09-19-2017 Ambulatory [facility] Plan of Treatment Date Care Activity Detail Author Start: 12-17-2020 Influenza vaccination INFLUENZA VACC INE [facility] Start: 2017 COTEST / [facility] Start: 2013 Microscopic observat ion [Identifier] in Cervix by Cyto stain PAP SMEAR [facility] Start: 2013 Screening for malign ant neoplasm of cervix CERVICAL CANCER SCREENING [facility] Start: 2010 HEPATITIS C SCREENING HEPATITIS C SC REENING [facility] Start: 2007 HIV SCREENING HIV SCREENING [facility] Start: 2003 TETANUS VACCINE 11+ TETANUS VACCINE 11+ [facility] Start: 1995 ANNUAL PREVENTIVE PH YSICAL (INCLUDES MAAP) ANNUAL PREVENTIVE PHYSICAL (INCLUDES MAAP) [facility] End: 11-03-2020 Radex ankle complete minimum 3 views XR ANKLE LEFT MINIMUM 3 VIEWS Imaging STAT Now for 1 Occurrences starting 11/03/2020 until 11/03/2020 [facility] Immunizations Immunization Date Immunization Notes Care Provider Tiffanie saleem 03-20-2018 influenza virus vacc ine, unspecified formulation John Grimaldo DO Work Phone: [facility] Payers Date Payer Category Payer Policy ID Worker's Compensation [employer]ATION [id number] Effective for all dates [id number] Social History Date Type Detail Facility Start: 03-11-2019 End: 11-03-2020 Tobacco smoking status NHIS Never smoker [facility] Start: 11-03-2020 Tobacco use and exposure [facility] Start: 11-03-2020 Alcohol intake Ex-drinker (finding) [facility] Start: 1992 Sex Assigned At Not on file P [facility] Exposure to SARS-CoV -2 (event) Not sure [facility] Sex Assigned At [facility] Clinical Note 11-04-2020 Note Date & Type [...] fibula. Dictated by: ENMANUEL BLAND DO Workstation ID:[id number] ANKLE PAIN; KNEE PAIN [facility] Clinical Note 11-04-2020 Note Date & [...] knee. Dictated by: ENMANUEL BLAND DO Workstation ID:[id number] ANKLE PAIN; KNEE PAIN, fall [facility] Clinical Note 11-04-2020 Note Date & [...] abnormality. Dictated by: ENMANUEL BLAND DO Workstation ID:[id number] ANKLE PAIN; KNEE PAIN, [facility] Emergency department Note 11-03-2020 Naga Zendejas RN [...] denies striking head. documented in this encounter [facility] Discharge instructions 11-03-2020 InstructionsAttachments Note Date [...] cannot be sent through Care Everywhere.Ankle Sprain (Ivorian)Knee Pain or Injury (Ivorian)documented in this encounter [facility] Evaluation + Plan note Note Date & Type Note Facility Evaluation + Plan note Future Appointments Appointment Date:09/13/2021 03:00:00 PM Scheduled Provider:TIARA RUFFIN Location[facility] Appointment Type:PC OV Follow Up Diagnostic Tests PendingProtein S Activity Free Ag 09/07/21Protein C Activity 09/07/21Factor V Assay 09/07/21 [facility] Evaluation note Note Date & Type Note Facility documented in this encounter [facility] course Narrative Note Date & Type Note Facility Hospital course Narrative No data available for this section [facility] Discharge instructions Note Date & Type Note Facility Hospital Discharge instructions No data available for this section [facility] Progress note Note Date & Type Note Facility Progress note No data available for this section [facility] Summary Purpose Family History No Family History [...] DATE CREATED AUTHOR AUTHOR'S ORGANIZ ATION 11/21/2018 [facility] DATE CREATED AUTHOR AUTHOR'S ORGANIZ ATION 11/05/2020 [facility] DATE CREATED AUTHOR AUTHOR'S ORGANIZ ATION 06/25/2021 [facility] DATE CREATED AUTHOR AUTHOR'S ORGANIZ ATION 09/13/2021 [facility] ([place]) DATE CREATED AUTHOR AUTHOR'S ORGANIZ ATION 06/22/2022 [facility] Reason for Visit (unrecogniz ed section and content) Scheduled Active and Recently Administ ered Medications (unrecognized section and content) Care Team (unrecognized sect ion and content) Personnel Name: TIARA RUFFIN [employer] Address: [address] [place] [id number] [place] FOR RECORDS PERTAINING TO PATIENTS WHO [...] BE BASED ON THE PRIMARY CLINICAL RECORDS. [employer] provides no warranty or guarantee of the accuracy or completeness of information in this document.
== END | disposition home or self-care (01) ==
PROVIDERS: PCP Nurse Practitioner Adult Health; Visit Provider Advanced Practice Midwife
DX: N94.6 Dysmenorrhea, unspecified (principal); Z31.69 Encounter for other general counseling and advice on procreation
CPT/HCPCS: 36415; 84144

== ENCOUNTER → 2023-08-04 | Outpatient (CLI) | payer OTHER, SELFPAY ==
[2023-08-04 16:39] LABS: hCG Titer Quant., Serum < 1 mIU/mL (1-3)
== END | disposition home or self-care (01) ==
LOC: LAB 14:58
PROVIDERS: PCP Nurse Practitioner Adult Health; Referring Provider Obstetrics & Gynecology; Visit Provider Obstetrics & Gynecology
DX: N91.2 Amenorrhea, unspecified (principal)
CPT/HCPCS: 36415; 84702